=== PATIENT | female | born 1980 | race Hispanic/Latino ===

== ENCOUNTER 2020-08-15 02:10 | Observation (INO) | payer BC, SELFPAY ==
[2020-08-15] MEDS ORDERED: Boostrix 0.5 ML (Tdap) VIAL ONE (02:27)
[2020-08-15] MEDS ORDERED: Lidocaine 1% (PF) 30 ML VIAL ONE (02:33)
[2020-08-15 05:30] VITALS: BMI 45.2
[2020-08-15] MEDS ORDERED: Ondansetron PF 4 MG/2 ML Vial IVP PRN (06:00)
[2020-08-15] MEDS ORDERED: Ondansetron ODT 4 MG TAB SL PRN (06:00)
[2020-08-15] MEDS ORDERED: Acetaminophen 325 MG TAB PO PRN (06:00)
[2020-08-15] MEDS: Sodium Chloride 0.9% 1,000 ML IV SCH ×2 (06:11→15:13)
--- NOTE | 2020-08-15 08:48 | RAD ---
LEFT FINGER 3 VIEWS: HISTORY: Injury left ring finger and pain. FINDINGS/IMPRESSION: There is a minimally displaced fracture involving the proximal shaft of the distal phalanx. POS: OFF
[2020-08-15] MEDS ORDERED: Dexamethasone 20 MG/5 ML VIAL ONE (09:45)
[2020-08-15] MEDS ORDERED: PROPOFOL 200 MG/20 ML VIAL ONE (09:45)
[2020-08-15] MEDS ORDERED: Ondansetron PF 4 MG/2 ML Vial ONE (09:45)
[2020-08-15] MEDS ORDERED: Ketorolac Tromethamine 30 MG/ML VIAL ONE (09:45)
[2020-08-15] MEDS ORDERED: Lidocaine 1% PF 5 ML VIAL ONE (09:45)
[2020-08-15 11:25] LABS: SARS-CoV-2 MS2 Positive; SARS-CoV-2 N Gene Negative; SARS-CoV-2 S Gene Negative; SARS-CoV-2 by NAA Not Detected (NotDetected); SARS-CoV-2 orf1ab Negative
[2020-08-15] MEDS ORDERED: Bupivacaine PF 0.5% 30 ML VIAL ONE (13:02)
[2020-08-15] MEDS ORDERED: Bacitracin Zinc Ointment 30 gm TUBE ONE (13:02)
[2020-08-15] MEDS ORDERED: Sodium Chloride 0.9% 10 ML ONE (13:02)
[2020-08-15] MEDS ORDERED: Fentanyl 100 MCG/2 ML VIAL ONE (13:17)
[2020-08-15] MEDS ORDERED: Midazolam HCl 2 mg/2 ml Vial ONE (13:17)
[2020-08-15 16:42] VITALS: TEMP 97.1
--- NOTE | 2020-08-15 16:58 | RAD ---
LEFT FINGER TWO VIEWS: 08/15/20 HISTORY: Left ring finger pinning. FINDINGS/IMPRESSION: Two spot fluoroscopic intraoperative images of the left ring finger demonstrates fixation of the frac ture of the proximal shaft of the distal phalanx noted on the earlier exam of same date. POS: OFF
[2020-08-15 18:21] VITALS: BP 118/78
--- NOTE | 2020-08-15 22:40 | OP ---
DATE OF PROCEDURE: 08/15/2020 PREOPERATIVE DIAGNOSIS: Left ring finger grade 1 open fracture base of the distal phalanx with nailbed laceration and 2 cm total wound. POSTOPERATIVE DIAGNOSIS: Left ring finger grade 1 open fracture base of the distal phalanx with nailbed laceration and 2 cm total wound. PROCEDURES PERFORMED: 1. Debridement of material associated with open fracture. 2. Debridement of wound. 3. Closure of wound, 2 cm. 4. Repair of nailbed. 5. Open reduction and internal fixation of distal phalanx fracture with two 0.35 K-wires. 6. C-arm supervision intraop. ESTIMATED BLOOD LOSS: Less than or equal to 5 mL. TOURNIQUET TIME: 27 minutes. INDICATIONS FOR PROCEDURE: The patient with open fracture approximately 10 hours prior to operative intervention, had excellent circulation, had normal two-point discrimination in the preoperative area. DESCRIPTION OF PROCEDURE: After successful general endotracheal anesthesia, the limb was prepped and draped. Time-out was done appropriately. We then injected the patient with a total of 50 mL of 0.5% Marcaine without epinephrine, waited 5 minutes and then exsanguinated the limb. The tourniquet was at 250 mmHg pressure. We extended her one of her incisions obliquely to lift up the nail, evaluate the nail bed, saw that the fracture went obliquely through the junction of the nailbed and the extensor terminal tendon. We then open book shotgun the fracture, debrided with a curette, Dundy blade, tenotomy scissors, irrigated with 2 L of normal saline. We debrided the wound edges, where she had 6 mm laceration in one side and 4 mm laceration in another. Then, once this was done, we released the tourniquet, repaired the laceration with 5-0 nylon to help realign the fracture and then held the fracture reduced. We passed two K-wires across from distal to proximal almost across the joint, but not so. Then, we cut these wires. We obtained hemostasis. We then closed the wounds completely with 4-0 nylon in interrupted pattern and then used a 6-0 chromic to repair the nailbed without complication. The patient left the operating room after we deflated the tourniquet and we had obtained hemostasis for the final time. We closed the oblique incision well with a 5-0 nylon in interrupted simple pattern that was used to identify areas of concern. Bulky dressing was applied along with a metal finger splint for the entire distal half of the phalanx and she left the operating room without evidence of anesthetic or operative complication. Job ID: [id number]
== END 2020-08-15 18:16 | disposition home or self-care (01) ==
LOC: ERS 02:10 → ERHOLD 03:24 → T4-B 05:32
PROVIDERS: ADMIT Orthopaedic Surgery Hand Surgery; ATTEND Orthopaedic Surgery Hand Surgery
PROC: 0PSV04Z Reposition Left Finger Phalanx with Internal Fixation Device, Open Approach (ICD-10-PCS; principal; 2020-08-15)
PROC: 0HQQXZZ Repair Finger Nail, External Approach (ICD-10-PCS; 2020-08-15)
DX: S62.635A Displaced fracture of distal phalanx of left ring finger, initial encounter for closed fracture (principal); W23.0XXA Caught, crushed, jammed, or pinched between moving objects, initial encounter
CPT/HCPCS: 29125; 76000; 87635; 90471; 90715; 96365; G0378; J0690; J1100; J1885; J2001; J2250; J2405; J2704; J3010; J3490; S0020; U0003

== ENCOUNTER 2025-07-25 18:32 | Emergency (ER) | payer OTHER, SELFPAY | END 2025-07-25 21:14 | LOC: ERS 18:32 | DX: S09.90XA Unspecified injury of head, initial encounter (principal); Y04.0XXA Assault by unarmed brawl or fight, initial encounter | CPT/HCPCS: 70450 ==